=== PATIENT | female | born 1985 | race Caucasian/White ===

== ENCOUNTER 2018-06-08 01:40 | Emergency (ER) | payer OTHER ==
[~2018-06-08] VITALS: Ht 152.4 cm; Wt 77.2 kg
[2018-06-08 01:45] VITALS: Ht 152.4 cm; Wt 77.2 kg
[2018-06-08 02:50] VITALS: BP 179/98
== END 2018-06-08 02:50 | disposition home or self-care (01) ==
LOC: ED 01:40
DX: R07.89 Other chest pain (principal); I10 Essential (primary) hypertension
CPT/HCPCS: J1885

== ENCOUNTER 2018-06-20 01:12 | Emergency (ER) | payer OTHER ==
[~2018-06-20] VITALS: Ht 154.9 cm; Wt 75.3 kg
[2018-06-20 01:21] VITALS: BP 182/98; Ht 154.9 cm; Wt 75.3 kg
== END 2018-06-20 01:50 | disposition home or self-care (01) ==
LOC: ED 01:12
DX: J02.0 Streptococcal pharyngitis (principal); I10 Essential (primary) hypertension; E78.00 Pure hypercholesterolemia, unspecified; F41.9 Anxiety disorder, unspecified

== ENCOUNTER 2018-10-28 15:36 | Emergency (ER) | payer OTHER ==
[~2018-10-28] VITALS: Ht 154.9 cm; Wt 76.2 kg
[2018-10-28 15:44] VITALS: Ht 154.9 cm; Wt 76.2 kg
[2018-10-28 17:24] LABS: BASOPHIL % 0.6 % (0-2); PLATELET COUNT 273 x10^3mcL (130-400); RED CELL DISTRIBUTION WIDTH 13.5 % (11.5-14.5)
[2018-10-28 17:27] LABS: microscopic required? YES; urine erythrocyte 2+ (NEGATIVE)
[2018-10-28 17:32] LABS: CALCIUM 9.3 mg/dL (8.5-10.1); CARBON DIOXIDE 30.1 mmol/L (21-32); CHLORIDE SERUM 100 mmol/L (98-107); CREATININE SERUM 0.7 mg/dL (0.6-1.0); GFR1 > 60 mL/min; GLUCOSE SERUM 93 mg/dL (74-106); POTASSIUM SERUM 3.7 mmol/L (3.5-5.1); SODIUM SERUM 138 mmol/L (136-145)
[2018-10-28 17:36] LABS: ALBUMIN 3.8 g/dL (3.4-5.0); ALKALINE PHOSPHATASE 61 U/L (46-116); ALT/SGPT 59 U/L (14-59); AST/SGOT 33 U/L (15-37); BILIRUBIN TOTAL 0.53 mg/dL (0.20-1.00); LIPASE 179 IU/L (73-393); TOTAL PROTEIN, SERUM 7.9 g/dL (6.4-8.2)
[2018-10-28 17:36] LABS: AMPHETAMINE QUAL UR NONE DETECTED (See below)
[2018-10-28 17:37] LABS: CHOLESTEROL 218 mg/dL (<200); HDL CHOLESTEROL 33 mg/dL (40-60)
[2018-10-28 20:41] VITALS: BP 152/101
== END 2018-10-28 20:41 | disposition home or self-care (01) ==
LOC: ED 15:36
PROVIDERS: Emergency Medicine
DX: R07.9 Chest pain, unspecified (principal); I10 Essential (primary) hypertension; E78.00 Pure hypercholesterolemia, unspecified; F41.9 Anxiety disorder, unspecified
CPT/HCPCS: 36415; 83880; G0480

== ENCOUNTER 2018-12-09 11:56 | Emergency (ER) | payer OTHER ==
[~2018-12-09] VITALS: Ht 154.9 cm; Wt 75.7 kg
[2018-12-09 12:05] VITALS: Ht 154.9 cm; Wt 75.7 kg
[2018-12-09 12:43] LABS: BASOPHIL % 0.9 % (0-2); PLATELET COUNT 260 x10^3mcL (130-400); RED CELL DISTRIBUTION WIDTH 14.3 % (11.5-14.5)
[2018-12-09 13:04] LABS: CALCIUM 9.2 mg/dL (8.5-10.1); CARBON DIOXIDE 27.8 mmol/L (21-32); CHLORIDE SERUM 102 mmol/L (98-107); CREATININE SERUM 0.8 mg/dL (0.6-1.0); GFR1 > 60 mL/min; GLUCOSE SERUM 86 mg/dL (74-106); SODIUM SERUM 138 mmol/L (136-145)
[2018-12-09 13:08] LABS: ALBUMIN 3.9 g/dL (3.4-5.0); ALKALINE PHOSPHATASE 49 U/L (46-116); ALT/SGPT 59 U/L (14-59); AMYLASE 57 U/L (25-115); AST/SGOT 24 U/L (15-37); BILIRUBIN TOTAL 0.46 mg/dL (0.20-1.00); LIPASE 143 IU/L (73-393); TOTAL PROTEIN, SERUM 7.5 g/dL (6.4-8.2)
[2018-12-09 16:34] VITALS: BP 112/72
== END 2018-12-09 16:34 | disposition home or self-care (01) ==
LOC: ED 11:56
PROVIDERS: Emergency Medicine
DX: R10.32 Left lower quadrant pain (principal); I10 Essential (primary) hypertension; E78.00 Pure hypercholesterolemia, unspecified; R11.0 Nausea; R35.0 Frequency of micturition; F41.9 Anxiety disorder, unspecified
CPT/HCPCS: J1885; J2405